=== PATIENT | female | born 1945 | race Two or more races ===

== ENCOUNTER 2024-10-22 09:09 | Emergency (ER) | payer OTHER ==
[~2024-10-22] VITALS: Ht 167.6 cm; Wt 81.6 kg
[2024-10-22] MEDS ORDERED: LEVOTHYROXINE25 MCG (09:30)
[2024-10-22] MEDS ORDERED: LOSARTAN POTASS50 MG (09:30)
[2024-10-22] MEDS ORDERED: TRAMADOL HCL 50 MG TABLET PO ONE (11:00)
[2024-10-22] MEDS ORDERED: NORFLEX100MG PO (11:56)
== END 2024-10-22 14:28 | disposition home or self-care (01) ==
LOC: ER 09:10
DX: S92.911A Unspecified fracture of right toe(s), initial encounter for closed fracture (principal); X58.XXXA Exposure to other specified factors, initial encounter; Y93.89 Activity, other specified; Y92.89 Other specified places as the place of occurrence of the external cause; Y99.8 Other external cause status; M25.571 Pain in right ankle and joints of right foot; I10 Essential (primary) hypertension; E11.9 Type 2 diabetes mellitus without complications; Z88.0 Allergy status to penicillin